=== PATIENT | female | born 1995 | race Caucasian/White ===

== ENCOUNTER 2017-06-11 11:28 | Emergency (ER) | payer SELFPAY ==
[2017-06-11] MEDS ORDERED: Dexamethasone 4 mg/ml Vial ONE (11:49)
== END 2017-06-11 12:00 | disposition home or self-care (01) ==
LOC: BURERS 11:28
DX: J06.9 Acute upper respiratory infection, unspecified (principal); J45.909 Unspecified asthma, uncomplicated; F41.9 Anxiety disorder, unspecified; F31.9 Bipolar disorder, unspecified
CPT/HCPCS: 99283; J1100